=== PATIENT | female | born 1985 ===

== ENCOUNTER 2020-09-21 09:50 | Outpatient (CLI) | payer OTHER ==
[~2020-09-21 09:50] MED LIST: Magnevist 469MG/ML 20 ML VIAL ONE
== END 2020-09-21 09:51 | disposition home or self-care (01) ==
LOC: BICMRI 09:50
PROVIDERS: ATTEND Nurse Practitioner Acute Care
DX: R51.9 Headache, unspecified (principal)
CPT/HCPCS: 70544; 70553; A9579